=== PATIENT | female | born 1995 | race Caucasian/White ===

== ENCOUNTER 2016-08-11 12:01 | Emergency (ER) | payer OTHER ==
[~2016-08-11] VITALS: Ht 175.3 cm; Wt 45.5 kg
[~2016-08-11 12:01] MED LIST: AMOXICILLIN 8751 TAB PO; CEFTIN 250250 MG/TAB PO; CEFTIN500 MG PO; CLARITIN 1010 MG/TAB PO; FAMVIR250 MG PO; NO HOME MEDICATIONS; NORCO 325 MG-51 TAB PO; PATADAY 2.5 ML2.5 ML OU; PRENATAL1 TA1; PRILOSEC 20MG20 MG PO; PROAIR HFA0.09 MG/AC IH; SINGULAIR 110 MG/TAB PO; VALTREX 50500 MG/TAB PO; VICODIN 5/5001 UDTAB PO; ZOFRAN 4MG T4 MG/TAB PO; ZOVIRAX 200MG200 MG PO; ZOVIRAX400 MG PO; ZOVIRAX800 MG PO
[2016-08-11 12:02] VITALS: BP 120/78; TEMP 98.6
[2016-08-11] MEDS ORDERED: DEPO-PROVER150 MG/M1 IM (12:06)
[2016-08-11 12:56] LABS: BASO # 0.1 (0.0-0.2); BASO % 0.7 % (0.0-2.0); EOS # 0.1 (0.0-0.7); EOS % 1.4 % (0-4.0); GRAN # 4.6 (1.4-6.5); LYMPH % 28.1 % (20.0-51.0); MEAN CELL VOLUME 91 fl (80.0-100.0); MEAN CORPUSCULAR HGB CONC 34 g/dl (33.0-37.0); MEAN PLATELET VOLUME 9.6 fl (7.4-10.4); MONO # 0.4 (0.1-0.6); MONO % 5.7 % (1.7-9.3); PLATELET COUNT 222 K/mm3 (130-400); REDCELL DISTRIBUTION WIDTH-CV 12.8 % (11.5-14.5); WHITE BLOOD COUNT 7.2 K/mm3 (4.8-10.8)
[2016-08-11 13:01] LABS: HEMATOCRIT 33.6 % (37.0-47.0); HEMOGLOBIN 11.5 g/dl (12.5-16.0); MEAN CORPUSCULAR HEMOGLOBIN 31 pg (27.0-31.0)
[2016-08-11 13:07] LABS: INR 1.1 (0.8-3.0); PROTHROMBIN TIME 11.8 SECONDS (9.7-12.8)
[2016-08-11 13:10] LABS: ADJUSTED CALCIUM 9.4 mg/dL (8.4-10.2); ALBUMIN 4.1 gm/dL (3.5-5.0); BILIRUBIN,TOTAL 1.1 mg/dL (0.0-1.0); CALCIUM 9.5 mg/dL (8.4-10.2); CREATININE, serum 0.59 mg/dL (0.52-1.25); PARTIAL THROMBOPLASTIN TIME 30.7 SECONDS (26.0-37.0); POTASSIUM 3.4 mmol/L (3.4-5.0); TOTAL PROTEIN 7.2 gm/dL (6.4-8.2)
[2016-08-11 13:31] VITALS: PULSE 70
[2016-12-24] MEDS ORDERED: CEFTIN500 MG PO (15:21)
== END 2016-08-11 13:32 | disposition home or self-care (01) ==
LOC: COL.ER 12:01
PROVIDERS: Physician Assistant
DX: R23.3 Spontaneous ecchymoses (principal); R11.10 Vomiting, unspecified

== ENCOUNTER 2016-09-16 12:30 | Emergency (ER) | payer OTHER ==
[~2016-09-16] VITALS: Ht 175.3 cm; Wt 47.3 kg
[~2016-09-16 12:30] MED LIST changes: +DEPO-PROVER150 MG/M1 IM
[2016-09-16 12:32] VITALS: TEMP 97.9
[2016-09-16] MEDS ORDERED: VALTREX 50500 MG/TAB PO (12:36)
[2016-09-16 13:22] LABS: PH 6 (5-8); SQUAMOUS EPITHELIAL 0-2 /hpf; URINE APPEARANCE Hazy; URINE BACTERIA None Seen /hpf; URINE BILIRUBIN Negative (NEGATIVE); URINE BLOOD 1+ (NEGATIVE); URINE COLOR Yellow; URINE GLUCOSE Negative (NEGATIVE); URINE KETONE Negative (NEGATIVE); URINE RBC 0-2 /hpf; URINE UROBILINOGEN Negative (NEGATIVE); URINE WBC 0-2 /hpf
[2016-09-16 13:42] LABS: BASO # 0.1 (0.0-0.2); BASO % 0.7 % (0.0-2.0); EOS # 0.1 (0.0-0.7); EOS % 0.9 % (0-4.0); GRAN # 5.5 (1.4-6.5); GRAN % 63.8 % (42.2-75.2); HEMOGLOBIN 12.3 g/dl (12.5-16.0); LYMPH # 2.5 (1.2-3.4); LYMPH % 29.3 % (20.0-51.0); MEAN CELL VOLUME 90 fl (80.0-100.0); MEAN CORPUSCULAR HEMOGLOBIN 31 pg (27.0-31.0); MEAN CORPUSCULAR HGB CONC 34 g/dl (33.0-37.0); MEAN PLATELET VOLUME 9.7 fl (7.4-10.4); MONO # 0.4 (0.1-0.6); MONO % 5.1 % (1.7-9.3); PLATELET COUNT 238 K/mm3 (130-400); REDCELL DISTRIBUTION WIDTH-CV 11.8 % (11.5-14.5); WHITE BLOOD COUNT 8.6 K/mm3 (4.8-10.8)
[2016-09-16 13:43] LABS: HEMATOCRIT 35.8 % (37.0-47.0)
[2016-09-16] MEDS ORDERED: FLAGYL500 MG PO (14:53)
[2016-09-16 15:00] VITALS: BP 108/63; PULSE 87
[2016-09-16 16:01] LABS: CHLAMYDIA/TRACH by PCR Female NOT DETECTED
[2016-09-16 16:02] LABS: NEISSERIA GON by PCR Female NOT DETECTED
[2016-12-24] MEDS ORDERED: CEFTIN500 MG PO (15:21)
== END 2016-09-16 15:07 | disposition home or self-care (01) ==
LOC: COL.ER 12:30
PROVIDERS: Nurse Practitioner
DX: N93.9 Abnormal uterine and vaginal bleeding, unspecified (principal); N76.0 Acute vaginitis
CPT/HCPCS: J1885

== ENCOUNTER 2016-10-13 15:41 | Emergency (ER) | payer SELFPAY ==
[~2016-10-13] VITALS: Ht 175.3 cm; Wt 45.5 kg
[~2016-10-13 15:41] MED LIST changes: +FLAGYL500 MG PO
[2016-10-13 15:44] VITALS: BP 104/60; TEMP 99
[2016-10-13] MEDS ORDERED: FLAX OIL1000 MG (16:07)
[2016-10-13] MEDS ORDERED: YAZ 28 3 MG-0.01 TAB PO (16:07)
[2016-10-13] MEDS ORDERED: VITAMIN D1000 IU (16:07)
[2016-10-13 17:04] VITALS: PULSE 70
[2016-12-24] MEDS ORDERED: CEFTIN500 MG PO (15:21)
== END 2016-10-13 17:04 | disposition home or self-care (01) ==
LOC: COL.ER 15:41
DX: S40.021A Contusion of right upper arm, initial encounter (principal); S70.12XA Contusion of left thigh, initial encounter; S70.11XA Contusion of right thigh, initial encounter; S80.02XA Contusion of left knee, initial encounter; W13.4XXA Fall from, out of or through window, initial encounter

== ENCOUNTER 2016-12-20 13:40 | Emergency (ER) | payer OTHER ==
[~2016-12-20] VITALS: Ht 175.3 cm; Wt 43.2 kg
[~2016-12-20 13:40] MED LIST changes: +FLAX OIL1000 MG; +VITAMIN D1000 IU; +YAZ 28 3 MG-0.01 TAB PO
[2016-12-20 13:43] VITALS: TEMP 98.7
[2016-12-20 14:17] LABS: HEMATOCRIT 38.6 % (37.0-47.0); HEMOGLOBIN 13.2 g/dl (12.5-16.0); MEAN CELL VOLUME 90 fl (80.0-100.0); MEAN CORPUSCULAR HEMOGLOBIN 31 pg (27.0-31.0); MEAN CORPUSCULAR HGB CONC 34 g/dl (33.0-37.0); MEAN PLATELET VOLUME 10.2 fl (7.4-10.4); PLATELET COUNT 182 K/mm3 (130-400); REDCELL DISTRIBUTION WIDTH-CV 12.2 % (11.5-14.5); WHITE BLOOD COUNT 17.8 K/mm3 (4.8-10.8)
[2016-12-20 14:19] LABS: ADD PATHOLOGY DIFF REVIEW NO
[2016-12-20 14:41] LABS: ADJUSTED CALCIUM 9.5 mg/dL (8.4-10.2); ALANINE AMINOTRANSFERASE 19 U/L (9-52); ALBUMIN 4.3 gm/dL (3.5-5.0); ALKALINE PHOSPHATASE 73 U/L (50-136); ANION GAP 15 mmol/L (7-16); BILIRUBIN,TOTAL 0.7 mg/dL (0.0-1.0); BLOOD UREA NITROGEN 14 mg/dL (7-17); CALCIUM 9.7 mg/dL (8.4-10.2); CARBON DIOXIDE 20 mmol/L (22-30); CHLORIDE 102 mmol/L (98-107); CREATININE, serum 0.65 mg/dL (0.52-1.25); GLUCOSE 119 mg/dL (74-106); POTASSIUM 3.5 mmol/L (3.4-5.0); SODIUM 137 mmol/L (137-145); TOTAL PROTEIN 7.8 gm/dL (6.4-8.2)
[2016-12-20] MEDS ORDERED: VALTREX1 GM PO (14:41)
[2016-12-20 14:57] LABS: BAND 30 % (0-10); MYELOCYTE 1 % (0-0); NEUTROPHILS 55 % (42.0-75.2); PLATELET ESTIMATE NORMAL (NORMAL); TOTAL CELLS COUNTED 100
[2016-12-20 16:06] LABS: PH 5 (5-8); SQUAMOUS EPITHELIAL 0-2 /hpf; URINE APPEARANCE Clear; URINE BACTERIA Moderate /hpf; URINE BILIRUBIN Negative (NEGATIVE); URINE BLOOD 2+ (NEGATIVE); URINE COLOR Yellow; URINE GLUCOSE Negative (NEGATIVE); URINE KETONE 2+ (NEGATIVE); URINE UROBILINOGEN Negative (NEGATIVE)
[2016-12-20 16:07] LABS: URINE WBC 20-50 /hpf
[2016-12-20 16:11] LABS: ERYTHROCYTE SEDIMENTATION RATE 14 mm/hr (0-20)
[2016-12-20] MEDS ORDERED: PHENERGAN 25 TA25 MG PO (17:23)
[2016-12-20] MEDS ORDERED: AMOXICILLIN 50500 MG PO (17:23)
[2016-12-20 17:44] VITALS: BP 110/62; PULSE 67
[2016-12-24] MEDS ORDERED: CEFTIN500 MG PO (15:21)
== END 2016-12-20 17:46 | disposition home or self-care (01) ==
LOC: COL.ER 13:40
PROVIDERS: Emergency Medicine
DX: J03.90 Acute tonsillitis, unspecified (principal); R10.811 Right upper quadrant abdominal tenderness; I88.0 Nonspecific mesenteric lymphadenitis; K80.20 Calculus of gallbladder without cholecystitis without obstruction; R68.81 Early satiety; R63.4 Abnormal weight loss
CPT/HCPCS: J2405; J7030; Q9967

== ENCOUNTER 2017-02-27 03:08 | Emergency (ER) | payer OTHER ==
[~2017-02-27] VITALS: Ht 175.3 cm; Wt 47.8 kg
[~2017-02-27 03:08] MED LIST changes: +AMOXICILLIN 50500 MG PO; +PHENERGAN 25 TA25 MG PO; +VALTREX1 GM PO
[2017-02-27 03:11] VITALS: TEMP 97.9
[2017-02-27] MEDS ORDERED: VALTREX 50500 MG/TAB PO (03:19)
[2017-02-27 03:56] LABS: PH 6 (5-8); SQUAMOUS EPITHELIAL 0-2 /hpf; URINE APPEARANCE Clear; URINE BACTERIA None Seen /hpf; URINE BILIRUBIN Negative (NEGATIVE); URINE BLOOD 1+ (NEGATIVE); URINE COLOR Yellow; URINE GLUCOSE Negative (NEGATIVE); URINE KETONE Negative (NEGATIVE); URINE RBC 0-2 /hpf; URINE UROBILINOGEN Negative (NEGATIVE)
[2017-02-27 05:44] LABS: CHLAMYDIA/TRACH by PCR Female DETECTED; NEISSERIA GON by PCR Female NOT DETECTED
[2017-02-27 06:08] VITALS: BP 99/56; PULSE 60
== END 2017-02-27 06:09 | disposition home or self-care (01) ==
LOC: COL.ER 03:08
PROVIDERS: Emergency Medicine
DX: A56.02 Chlamydial vulvovaginitis (principal); B00.9 Herpesviral infection, unspecified

== ENCOUNTER 2017-08-02 00:05 | Emergency (ER) | payer OTHER ==
[~2017-08-02] VITALS: Ht 175.3 cm; Wt 45.5 kg
[2017-08-02 00:12] VITALS: BP 109/67; PULSE 94; TEMP 97.7
[2017-08-02] MEDS ORDERED: LEXAPRO 10MG10 MG PO (00:18)
[2017-08-02 00:56] LABS: BASO # 0.1 (0.0-0.2); BASO % 0.7 % (0.0-2.0); EOS # 0.1 (0.0-0.7); GRAN % 62.2 % (42.2-75.2); HEMATOCRIT 37.2 % (37.0-47.0); HEMOGLOBIN 12.7 g/dl (12.5-16.0); LYMPH # 2.6 (1.2-3.4); LYMPH % 31.9 % (20.0-51.0); MEAN CELL VOLUME 92 fl (80.0-100.0); MEAN CORPUSCULAR HEMOGLOBIN 31 pg (27.0-31.0); MEAN CORPUSCULAR HGB CONC 34 g/dl (33.0-37.0); MEAN PLATELET VOLUME 9.9 fl (7.4-10.4); MONO # 0.3 (0.1-0.6); PLATELET COUNT 227 K/mm3 (130-400); RED BLOOD COUNT 4.06 M/mm3 (4.10-5.30)
[2017-08-02 01:08] LABS: ACETAMINOPHEN < 10 ug/mL (10-30); ALANINE AMINOTRANSFERASE 24 U/L (9-52); ALBUMIN 4.5 gm/dL (3.5-5.0); ALCOHOL(ethanol),MEDICAL 180 mg/dL; ALKALINE PHOSPHATASE 63 U/L (50-136); ANION GAP 10 mmol/L (7-16); AST,SGOT 21 U/L (15-37); BILIRUBIN,TOTAL 0.2 mg/dL (0.0-1.0); BLOOD UREA NITROGEN 10 mg/dL (7-17); CALCIUM 9.8 mg/dL (8.4-10.2); CARBON DIOXIDE 23 mmol/L (22-30); CHLORIDE 112 mmol/L (98-107); CREATININE, serum 0.56 mg/dL (0.52-1.25); GLUCOSE 103 mg/dL (74-106); POTASSIUM 3.9 mmol/L (3.4-5.0); SALICYLATE < 1.0 mg/dL; SODIUM 145 mmol/L (137-145); TOTAL PROTEIN 7.5 gm/dL (6.4-8.2)
== END 2017-08-02 01:26 | disposition left against medical advice (07) ==
LOC: COL.ER 00:05
PROVIDERS: Family Medicine
DX: F10.129 Alcohol abuse with intoxication, unspecified (principal); F32.9 Major depressive disorder, single episode, unspecified; Y90.6 Blood alcohol level of 120-199 mg/100 ml
CPT/HCPCS: J7030

== ENCOUNTER 2018-01-08 05:19 | Emergency (ER) | payer OTHER ==
[~2018-01-08 05:19] MED LIST changes: +LEXAPRO 10MG10 MG PO
[2018-01-08 05:40] VITALS: BP 104/64; PULSE 81; TEMP 99.4
== END 2018-01-08 06:02 | disposition left against medical advice (07) ==
LOC: COL.ER 05:19
DX: F10.129 Alcohol abuse with intoxication, unspecified (principal)

== ENCOUNTER 2018-05-07 03:14 | Emergency (ER) | payer OTHER ==
[~2018-05-07] VITALS: Ht 175.3 cm; Wt 47.7 kg
[2018-05-07 03:18] VITALS: TEMP 97.1
[2018-05-07 03:41] LABS: BASO # 0.1 (0.0-0.2); EOS # 0.1 (0.0-0.7); EOS % 1.4 % (0-4.0); GRAN # 4.2 (1.4-6.5); GRAN % 51.9 % (42.2-75.2); HEMATOCRIT 40.9 % (37.0-47.0); HEMOGLOBIN 14.1 g/dl (12.5-16.0); LYMPH # 3.3 (1.2-3.4); LYMPH % 40.3 % (20.0-51.0); MEAN CELL VOLUME 91 fl (80.0-100.0); MEAN CORPUSCULAR HEMOGLOBIN 31 pg (27.0-31.0); MEAN CORPUSCULAR HGB CONC 35 g/dl (33.0-37.0); MEAN PLATELET VOLUME 9.7 fl (7.4-10.4); MONO # 0.4 (0.1-0.6); MONO % 5.3 % (1.7-9.3); PLATELET COUNT 254 K/mm3 (130-400); RED BLOOD COUNT 4.52 M/mm3 (4.10-5.30); REDCELL DISTRIBUTION WIDTH-CV 12.1 % (11.5-14.5)
[2018-05-07] MEDS ORDERED: VALTREX 50500 MG/TAB PO (03:42)
[2018-05-07 03:53] LABS: ALANINE AMINOTRANSFERASE 24 U/L (9-52); ALBUMIN 4.8 gm/dL (3.5-5.0); ALKALINE PHOSPHATASE 58 U/L (50-136); ANION GAP 10 mmol/L (7-16); AST,SGOT 24 U/L (15-37); BILIRUBIN,TOTAL 0.5 mg/dL (0.0-1.0); BLOOD UREA NITROGEN 8 mg/dL (7-17); CALCIUM 10.1 mg/dL (8.4-10.2); CARBON DIOXIDE 26 mmol/L (22-30); CHLORIDE 109 mmol/L (98-107); CREATININE, serum 0.62 mg/dL (0.52-1.25); GLUCOSE 112 mg/dL (74-106); LIPASE 54 U/L (23-300); POTASSIUM 4.2 mmol/L (3.4-5.0); SODIUM 145 mmol/L (137-145); TOTAL PROTEIN 8.4 gm/dL (6.4-8.2)
[2018-05-07 03:54] LABS: C-REACTIVE PROTEIN < 0.5 mg/dL (0.0-0.9)
[2018-05-07 06:58] LABS: COLLECTION METHOD CLEAN CATCH
[2018-05-07] MEDS ORDERED: ZOFRAN 4MG T4 MG/TAB PO (07:03)
[2018-05-07] MEDS ORDERED: NORCO 325 MG-51 TAB PO (07:03)
[2018-05-07 07:24] LABS: URINE APPEARANCE Clear; URINE COLOR Yellow
[2018-05-07 07:25] LABS: MUCOUS Present /lpf; PH 7 (5-8); SQUAMOUS EPITHELIAL 0-2 /hpf; URINE BACTERIA None Seen /hpf; URINE BILIRUBIN Negative (NEGATIVE); URINE BLOOD Negative (NEGATIVE); URINE GLUCOSE Negative (NEGATIVE); URINE KETONE Negative (NEGATIVE); URINE LEUKOCYTE ESTERASE Negative (NEGATIVE); URINE NITRATE Positive (NEGATIVE); URINE PROTEIN(semi-quant) Negative (NEGATIVE); URINE UROBILINOGEN Negative (NEGATIVE)
[2018-05-07 09:01] VITALS: BP 118/54; PULSE 74
== END 2018-05-07 09:03 | disposition other institution (70) ==
LOC: COL.ER 03:14
PROVIDERS: Emergency Medicine
DX: R10.32 Left lower quadrant pain (principal); F17.210 Nicotine dependence, cigarettes, uncomplicated; Z87.19 Personal history of other diseases of the digestive system
CPT/HCPCS: J1885; J2405; J3010; J7030; Q9967

== ENCOUNTER 2019-11-04 21:52 | Emergency (ER) | payer OTHER ==
[~2019-11-04] VITALS: Ht 175.3 cm; Wt 52.3 kg
[2019-11-04 22:21] LABS: BASO % 0.2 % (0.0-2.0); EOS % 0.1 % (0-4.0); GRAN # 14.6 (1.4-6.5); GRAN % 80.1 % (42.2-75.2); HEMATOCRIT 38.5 % (37.0-47.0); HEMOGLOBIN 13.7 g/dl (12.5-16.0); LYMPH # 2.2 (1.2-3.4); LYMPH % 11.8 % (20.0-51.0); MEAN CELL VOLUME 86 fl (80.0-100.0); MEAN CORPUSCULAR HEMOGLOBIN 31 pg (27.0-31.0); MEAN CORPUSCULAR HGB CONC 36 g/dl (33.0-37.0); MEAN PLATELET VOLUME 9.6 fl (7.4-10.4); MONO # 1.3 (0.1-0.6); MONO % 7.4 % (1.7-9.3); PLATELET COUNT 247 K/mm3 (130-400); RED BLOOD COUNT 4.48 M/mm3 (4.10-5.30); REDCELL DISTRIBUTION WIDTH-CV 11.5 % (11.5-14.5)
[2019-11-04 22:31] LABS: ALBUMIN 4.3 gm/dL (3.5-5.0); BILIRUBIN,TOTAL 0.8 mg/dL (0.0-1.0); CALCIUM 9.6 mg/dL (8.4-10.2); CREATININE, serum 0.6 (0.52-1.25); POTASSIUM 3.3 mmol/L (3.4-5.0); TOTAL PROTEIN 8.1 gm/dL (6.4-8.2)
[2019-11-04 23:16] LABS: COLLECTION METHOD CLEAN CATCH
[2019-11-04 23:23] LABS: MUCOUS Present /lpf; PH 6 (5-8); SQUAMOUS EPITHELIAL 0-2 /hpf; URINE APPEARANCE Hazy; URINE BACTERIA None Seen /hpf; URINE BILIRUBIN Negative (NEGATIVE); URINE BLOOD 1+ (NEGATIVE); URINE COLOR Amber; URINE GLUCOSE Negative (NEGATIVE); URINE KETONE 2+ (NEGATIVE); URINE LEUKOCYTE ESTERASE 1+ (NEGATIVE); URINE NITRATE Negative (NEGATIVE); URINE PROTEIN(semi-quant) 1+ (NEGATIVE); URINE RBC 20-50 /hpf
[2019-11-05] MEDS ORDERED: CEFTIN500 MG PO (00:58)
[2019-11-05] MEDS ORDERED: PHENERGAN 25 TA25 MG PO (00:58)
[2019-11-05 01:09] VITALS: BP 101/62; PULSE 65; TEMP 98.6
== END 2019-11-05 01:14 | disposition home or self-care (01) ==
LOC: COL.ER 21:52
PROVIDERS: Emergency Medicine
DX: N12 Tubulo-interstitial nephritis, not specified as acute or chronic (principal); F41.9 Anxiety disorder, unspecified; F31.0 Bipolar disorder, current episode hypomanic; F17.210 Nicotine dependence, cigarettes, uncomplicated
CPT/HCPCS: J0696; J1885; J2405; J2550; J3010; J7030; Q9967